=== PATIENT | female | born 1995 | race Two or more races ===

== ENCOUNTER 2018-03-14 14:48 | Emergency (ER) | payer SELFPAY ==
[~2018-03-14] VITALS: Ht 152.4 cm; Wt 62.6 kg
[2018-03-14 14:56] VITALS: BP 114/74
[2018-03-14 15:36] LABS: BASOPHILS # (AUTO) 0.02 x10^3/uL (0-0.1); BASOPHILS % (AUTO) 0 % (0-1); EOSINOPHILS # (AUTO) 0.16 x10^3/uL (0-0.4); EOSINOPHILS % (AUTO) 1 % (1-7); LYMPHOCYTES % (AUTO) 24 % (22-44); MD NO; MEAN CORPUSCULAR HGB CONC 33.6 g/dL (32.4-35.8); MEAN CORPUSCULAR VOLUME 83.5 fL (80-100); MEAN PLATELET VOLUME 9.4 fL (7.4-10.4); MONOCYTES # (AUTO) 0.97 x10^3/uL (0.2-0.8); MONOCYTES % (AUTO) 8 % (2-9); NEUTROPHILS # (AUTO) 8.27 x10^3/uL (1.8-6.8); NEUTROPHILS % (AUTO) 67 % (42-75); PLATELET COUNT 282 x10^3/uL (130-400); RED BLOOD COUNT 5.26 x10^6/uL (3.82-5.3); RED CELL DISTRIBUTION WIDTH 13.2 % (9.6-15.2)
[2018-03-14 15:45] LABS: ALBUMIN 4.1 g/dL (3.4-5.0); ANION GAP 7 mmol/L (5-15); CALCIUM 9.1 mg/dL (8.5-10.1); CHLORIDE 105 mmol/L (98-107)
[2018-03-14 15:50] LABS: CREATININE 0.79 mg/dL (0.55-1.02)
[2018-03-14 16:23] LABS: MICROSCOPIC AUTO
[2018-03-14 16:28] LABS: CULTURE INDICATED? NO
[2018-03-14] MEDS ORDERED: OXYcodone/APAP 5/325MG TABLET ONE (17:36)
[2018-03-14] MEDS ORDERED: OXYcodone/APAP 5/325MG TABLET PO ONE (18:00)
[2018-03-14 18:04] LABS: CLUE CELLS PRESENT (NONE SEEN); WET PREP WBCS FEW (FEW)
[2018-03-14] MEDS ORDERED: AZITHROMYCIN 500 MG TABLET PO ONE (18:30)
[2018-03-14] MEDS ORDERED: CEFTRIAXONE 1,000 MG IM ONE (18:30)
[2018-03-14] MEDS ORDERED: AZITHROMYCIN 250 MG TABLET ONE (18:31)
[2018-03-14] MEDS ORDERED: CEFTRIAXONE 250 MG ONE (18:31)
== END 2018-03-14 19:12 | disposition home or self-care (01) ==
LOC: ED 17:15
DX: N73.0 Acute parametritis and pelvic cellulitis (principal); N76.0 Acute vaginitis
CPT/HCPCS: 36415; 80048; 81001; 82040; 84703; 85025; 87210; 87491; 87591; 87808; 96372; 99283; J0696

== ENCOUNTER 2018-06-23 16:16 | Emergency (ER) | payer SELFPAY ==
[~2018-06-23] VITALS: Ht 154.9 cm; Wt 64.0 kg
[2018-06-23 16:30] VITALS: BP 121/83
--- NOTE | 2018-06-23 18:20 | NUR ---
Pt to US prior to RN assesment.
--- NOTE | 2018-06-23 18:26 | NUR ---
Pt back from US, lab at bedside, pt agrees to attempt UA after lab draw
[2018-06-23] MEDS ORDERED: PHENAZOPYRIDINE 200 MG TABLET ONE (18:28)
[2018-06-23] MEDS ORDERED: PHENAZOPYRIDINE 200 MG TABLET PO ONE (18:30)
[2018-06-23 18:44] LABS: MICROSCOPIC NOT IND
[2018-06-23 18:46] LABS: CULTURE INDICATED? NO
[2018-06-23 18:51] LABS: BASOPHILS # (AUTO) 0.05 x10^3/uL (0-0.1); BASOPHILS % (AUTO) 1 % (0-1); EOSINOPHILS # (AUTO) 0.19 x10^3/uL (0-0.4); EOSINOPHILS % (AUTO) 2 % (1-7); LYMPHOCYTES # (AUTO) 2.71 x10^3/uL (1-3.4); LYMPHOCYTES % (AUTO) 25 % (22-44); MD NO; MEAN CORPUSCULAR HEMOGLOBIN 28.1 pg (27.0-34.8); MEAN CORPUSCULAR HGB CONC 33.7 g/dL (32.4-35.8); MEAN CORPUSCULAR VOLUME 83.3 fL (80-100); MEAN PLATELET VOLUME 9.3 fL (7.4-10.4); MONOCYTES # (AUTO) 0.85 x10^3/uL (0.2-0.8); MONOCYTES % (AUTO) 8 % (2-9); NEUTROPHILS # (AUTO) 6.97 x10^3/uL (1.8-6.8); NEUTROPHILS % (AUTO) 65 % (42-75); PLATELET COUNT 299 x10^3/uL (130-400); RED BLOOD COUNT 5.34 x10^6/uL (3.82-5.3); RED CELL DISTRIBUTION WIDTH 13.1 % (9.6-15.2)
== END 2018-06-23 20:47 | disposition home or self-care (01) ==
LOC: ED 17:37
DX: R10.30 Lower abdominal pain, unspecified (principal); R30.0 Dysuria; F41.1 Generalized anxiety disorder; Z86.39 Personal history of other endocrine, nutritional and metabolic disease
CPT/HCPCS: 36415; 74021; 76830; 81003; 84703; 85025; 99284

== ENCOUNTER 2019-04-30 17:22 | Emergency (ER) | payer SELFPAY ==
[~2019-04-30] VITALS: Ht 162.6 cm; Wt 67.5 kg
[2019-04-30 17:27] VITALS: BP 117/73
--- NOTE | 2019-04-30 19:30 | NUR ---
PT. WAS CALLED AT 1906, 1909 AND 1929 WITH NO ANSWER.
== END 2019-04-30 19:33 ==
LOC: ED 19:25
DX: R07.9 Chest pain, unspecified (principal); R06.02 Shortness of breath; R53.1 Weakness; Z53.21 Procedure and treatment not carried out due to patient leaving prior to being seen by health care provider
CPT/HCPCS: 93005

== ENCOUNTER 2019-12-23 11:37 | Emergency (ER) | payer SELFPAY ==
[~2019-12-23] VITALS: Ht 152.4 cm; Wt 62.7 kg
--- NOTE | 2019-12-23 12:53 | NUR ---
PT TO ROOM
--- NOTE | 2019-12-23 13:10 | NUR ---
PT BROUGHT BACK FROM TRIAGE WITH CHIEF COMPLAINT OF UPPER ABD PAIN FOR TWO DAYS. "FEELS LIKE ITS BURNING, WHEN I EAT SPICY STUFF". DENIES N/V, CP, SOB, RECENT TRAUMA.
[2019-12-23] MEDS ORDERED: ONDANSETRON 2MG/ML, 2ML ONE (13:30)
[2019-12-23] MEDS ORDERED: MAALOX/HYOSCYAMINE/LIDOCAINE 45 ML BTL ONE (13:30)
[2019-12-23] MEDS ORDERED: SODIUM CHLORIDE FLUSH 10ML SYR IVF ONE (13:30)
[2019-12-23] MEDS ORDERED: SODIUM CHLORIDE 0.9% 1,000ML IVBOLUS ONE (13:30)
[2019-12-23] MEDS ORDERED: ONDANSETRON 2MG/ML, 2ML IVPush ONE (13:30)
[2019-12-23] MEDS ORDERED: FAMOTIDINE 20 MG/2 ML IV ONE (13:30)
[2019-12-23] MEDS ORDERED: FAMOTIDINE 20 MG/2 ML ONE (13:30)
[2019-12-23] MEDS ORDERED: MAALOX/HYOSCYAMINE/LIDOCAINE 45 ML BTL PO ONE (13:30)
--- NOTE | 2019-12-23 13:42 | NUR ---
Break rn- PIV placed, medicated as ordered. US at bedside.
[2019-12-23 13:43] LABS: BASOPHILS # (AUTO) 0.03 x10^3/uL (0-0.1); BASOPHILS % (AUTO) 0 % (0-1); EOSINOPHILS # (AUTO) 0.09 x10^3/uL (0-0.4); EOSINOPHILS % (AUTO) 1 % (1-7); LYMPHOCYTES # (AUTO) 2.34 x10^3/uL (1-3.4); LYMPHOCYTES % (AUTO) 24 % (22-44); MD NO; MEAN CORPUSCULAR HEMOGLOBIN 27.2 pg (27.0-34.8); MEAN CORPUSCULAR HGB CONC 32.1 g/dL (32.4-35.8); MEAN CORPUSCULAR VOLUME 84.8 fL (80-100); MEAN PLATELET VOLUME 8.8 fL (7.4-10.4); MONOCYTES # (AUTO) 0.78 x10^3/uL (0.2-0.8); MONOCYTES % (AUTO) 8 % (2-9); NEUTROPHILS # (AUTO) 6.53 x10^3/uL (1.8-6.8); NEUTROPHILS % (AUTO) 67 % (42-75); PLATELET COUNT 228 x10^3/uL (130-400); RED BLOOD COUNT 5.17 x10^6/uL (3.82-5.3); RED CELL DISTRIBUTION WIDTH 13.5 % (9.6-15.2)
[2019-12-23 13:50] LABS: ALBUMIN 3.6 g/dL (3.4-5.0); ANION GAP 6 mmol/L (5-15); CALCIUM 8.9 mg/dL (8.5-10.1); CHLORIDE 107 mmol/L (98-107)
[2019-12-23 13:56] LABS: ALKALINE PHOSPHATASE 62 U/L (45-117); BILIRUBIN,TOTAL 0.6 mg/dL (0.2-1.0); CREATININE 0.78 mg/dL (0.55-1.02); TOTAL PROTEIN 7.1 g/dL (6.4-8.2)
[2019-12-23 13:58] LABS: ALANINE AMINOTRANSFERASE 24 U/L (12-78)
--- NOTE | 2019-12-23 14:02 | NUR ---
PT UPRIGHT ON EDUAR WATTS. PT MEDICATED PER EMAR, STATES SHE "FEELS BETTER". NO ADDITIONAL NEEDS AT THIS TIME, CALL LIGHT WITHIN REACH.
[2019-12-23 14:03] VITALS: BP 125/74
--- NOTE | 2019-12-23 14:41 | NUR ---
Patient given discharge instructions and they have confirmed that they understand the instructions. Patient ambulatory with steady gait.
== END 2019-12-23 14:47 | disposition home or self-care (01) ==
LOC: ED 13:16
DX: K29.20 Alcoholic gastritis without bleeding (principal); R11.2 Nausea with vomiting, unspecified; R10.13 Epigastric pain
CPT/HCPCS: 36415; 76700; 80053; 83690; 84703; 85025; 96361; 96374; 96375; 99284; J2405; J3490; J7030

== ENCOUNTER 2020-02-19 13:11 | Emergency (ER) | payer SELFPAY ==
[~2020-02-19] VITALS: Ht 152.4 cm; Wt 61.3 kg
[2020-02-19 13:14] VITALS: BP 144/76
--- NOTE | 2020-02-19 17:31 | NUR ---
AURICULAR THERAPIST: NO ANSWER X 1
--- NOTE | 2020-02-19 17:41 | NUR ---
MILLER WOOD [employer]OUR: CALLED PT NO ANSWER
--- NOTE | 2020-02-19 17:49 | NUR ---
TIP INSERTER: CALLED PT NO ANSWER
== END 2020-02-19 17:51 | disposition left against medical advice (07) ==
LOC: ED 17:45
DX: L60.0 Ingrowing nail (principal); R60.0 Localized edema; E11.9 Type 2 diabetes mellitus without complications
CPT/HCPCS: 99281